=== PATIENT | male | born 1965 | race African-American/Black ===

== ENCOUNTER → 2017-05-14 | Outpatient (REF) ==
[~2017-05-14] MED LIST: AMOXICILLIN875 MG PO
[2017-05-14 19:41] LABS: PSA-TOTAL 3.11 ng/mL (0-4); THYROID STIMULATING HORMONE 1.67 uIU/mL (0.465-4.680)
== END ==
LOC: ZLAB.WCH 18:22
PROVIDERS: Internal Medicine
DX: Z01.89 Encounter for other specified special examinations (principal)
CPT/HCPCS: G0103

== ENCOUNTER 2017-06-23 13:57 | Emergency (ER) | payer MEDICARE, MEDICAID ==
[~2017-06-23] VITALS: Ht 172.7 cm; Wt 111.4 kg
[2017-06-23 13:59] VITALS: BP 140/97; PULSE 100; TEMP 97.5
[2017-06-23] MEDS ORDERED: AMOXICILLIN875 MG PO (14:54)
== END 2017-06-23 15:03 | disposition home or self-care (01) ==
LOC: COL.ER 13:57
DX: J32.9 Chronic sinusitis, unspecified (principal); I10 Essential (primary) hypertension; F17.210 Nicotine dependence, cigarettes, uncomplicated; Z87.19 Personal history of other diseases of the digestive system; Z90.89 Acquired absence of other organs; Z98.890 Other specified postprocedural states

== ENCOUNTER → 2017-08-21 | Outpatient (REF) ==
[2017-08-21 16:27] LABS: PSA-TOTAL 2.92 ng/mL (0-4); THYROID STIMULATING HORMONE 1.7 uIU/mL (0.465-4.680)
== END ==
LOC: ZLAB.WCH 14:39
PROVIDERS: Internal Medicine
DX: Z01.89 Encounter for other specified special examinations (principal)
CPT/HCPCS: G0103

== ENCOUNTER 2017-10-31 13:46 | Emergency (ER) | payer MEDICARE ==
[~2017-10-31] VITALS: Ht 20.3 cm; Wt 110.9 kg
[2017-10-31 13:55] VITALS: BP 199/95; TEMP 97.6
[2017-10-31] MEDS ORDERED: PRIL40 PO (16:08)
[2017-10-31] MEDS ORDERED: COZAAR100 MG PO (16:08)
[2017-10-31 17:02] VITALS: PULSE 94
== END 2017-10-31 17:02 | disposition home or self-care (01) ==
LOC: COL.ER 13:46
DX: S61.412A Laceration without foreign body of left hand, initial encounter (principal); X58.XXXA Exposure to other specified factors, initial encounter; Y92.009 Unspecified place in unspecified non-institutional (private) residence as the place of occurrence of the external cause

== ENCOUNTER → 2018-01-18 | Outpatient (REF) ==
[~2018-01-18] MED LIST changes: +COZAAR100 MG PO; +PRIL40 PO
== END ==
LOC: ZLAB.WCH 17:55
DX: Z01.89 Encounter for other specified special examinations (principal)

== ENCOUNTER → 2018-08-16 | Outpatient (REF) | LOC: ZLAB.WCH 18:17 | DX: Z01.89 Encounter for other specified special examinations (principal) ==

== ENCOUNTER 2018-09-04 05:09 | Day surgery (SDC) | payer MEDICARE, MEDICAID ==
[~2018-09-04] VITALS: Ht 172.7 cm; Wt 122.2 kg
[2018-09-04] VITALS (9 sets, daily range): BP systolic 122–144; BP diastolic 51–90; PULSE 72–89; TEMP 98.1–98.3
[2018-09-04] MEDS ORDERED: PRIL40 PO (06:41)
[2018-09-04] MEDS ORDERED: LIPITOR 40MG TA40 MG PO (06:42)
[2018-09-04] MEDS ORDERED: COZAAR100 MG PO (06:42)
[2018-09-04] MEDS ORDERED: MOTRIN 600600 MG/TAB PO (10:09)
[2018-09-04] MEDS ORDERED: NORCO 325 MG-51 TAB PO (10:09)
== END 2018-09-04 13:37 | disposition home or self-care (01) ==
LOC: SDCO 05:09
DX: K40.90 Unilateral inguinal hernia, without obstruction or gangrene, not specified as recurrent (principal); D17.6 Benign lipomatous neoplasm of spermatic cord; Z79.899 Other long term (current) drug therapy; I10 Essential (primary) hypertension; E11.9 Type 2 diabetes mellitus without complications; Z83.3 Family history of diabetes mellitus; E66.01 Morbid (severe) obesity due to excess calories; Z68.39 Body mass index [BMI] 39.0-39.9, adult
CPT/HCPCS: C1781; J0330; J0690; J1885; J2250; J2550; J2704; J3010; J7120

== ENCOUNTER → 2018-11-18 | Outpatient (REF) ==
[~2018-11-18] MED LIST changes: +LIPITOR 40MG TA40 MG PO; +MOTRIN 600600 MG/TAB PO; +NORCO 325 MG-51 TAB PO
== END ==
LOC: ZLAB.WCH 15:04
DX: Z01.89 Encounter for other specified special examinations (principal)
CPT/HCPCS: G0103

== ENCOUNTER → 2019-02-17 | Outpatient (REF) | LOC: ZLAB.WCH 15:24 | DX: Z01.89 Encounter for other specified special examinations (principal) ==